=== PATIENT | male | born 1975 | race Two or more races ===

== ENCOUNTER 2017-03-17 12:08 | Inpatient (IN) | payer MEDICAID ==
[~2017-03-17] VITALS: Ht 172.7 cm; Wt 83.3 kg
[2017-03-17 10:30] VITALS: BP 141/91
[~2017-03-17 12:08] MED LIST: CIPRO; MOTRIN; PYRIDIUM
[2017-03-17] MEDS ORDERED: SODIUM CHLORIDE 0.9% 1,000 ML IVB ONE (12:16)
[2017-03-17] MEDS ORDERED: LORazepam 2MG/ML-1ML VIAL IV ONE (12:30)
[2017-03-17] MEDS ORDERED: ONDANSETRON HCL 4 MG/2 ML VIAL IV ONE (12:30)
[2017-03-17 13:03] LABS: Basophils # (auto) 0 uL; CONDITION Y; DEFINITIVE SEE PRINTOUT; Eosinophils # (auto) 0 uL; Hematocrit 39.5 % (41.0-53.0); Hemoglobin 13.8 g/dL (13.5-17.5); Lymphocytes # (auto) 0.2 uL; Lymphocytes % (auto) 5.9 % (10.0-50.0); Mean Corpuscular Hemoglobin 35.8 pg (28.0-32.0); Mean Corpuscular Volume 102.2 fL (80.0-100.0); Mean Platelet Volume 11.1 fL (7.4-10.4); Monocytes # (auto) 0.3 uL; Monocytes % (auto) 7.2 % (0.0-12.0); Neutrophils # (auto) 3.5 uL; Neutrophils % (auto) 86.9 % (37.0-80.0); Platelet Count (auto) 48 10^3/uL (140-450); Red Cell Distribution Width 18.6 % (11.6-16.0); SUSPECT SEE PRINTOUT
[2017-03-17 13:25] LABS: Macrocytosis Slight; Platelet Estimate Decreased
[2017-03-17 13:27] LABS: INR 1.52 (0.9-1.15); Partial Thromboplastin Time 31.2 sec (22.64-33.71)
[2017-03-17 13:38] LABS: Prothrombin Time 16.6 sec (9.37-12.3)
[2017-03-17 13:43] LABS: Albumin 2.9 g/dL (3.4-5.0); Alkaline Phosphatase 273 U/L (45-117); Anion Gap 15 (5-15); BUN/Creatinine Ratio 9.6; Bilirubin, Total 16.1 mg/dL (0.2-1.0); Blood Urea Nitrogen 7 mg/dL (7-18); Calcium 8.6 mg/dL (8.5-10.1); Carbon Dioxide 22 mmol/L (21-32); Chloride 96 mmol/L (98-107); GFR African American 152 mL/min; GFR Non-African American 125 mL/min; Glucose 153 mg/dL (74-106); Magnesium 1.8 mg/dL (1.6-2.6); Sodium 133 mmol/L (136-145); Total Protein 7.4 g/dL (6.4-8.2)
[2017-03-17 13:54] LABS: Aspartate Aminotransferase 280 U/L (15-37)
[2017-03-17] MEDS ORDERED: POTASSIUM CHL 20 Meq TABLET PO ONE ×2 (15:15→22:00)
[2017-03-17] MEDS ORDERED: LORazepam 2MG/ML-1ML VIAL IV PRN (15:15)
[2017-03-17] MEDS ORDERED: PANTOPRAZOLE SODIUM 40 MG/10 ML VIAL IV ONE (15:45)
[2017-03-17] MEDS ORDERED: ONDANSETRON HCL 4 MG/2 ML VIAL IV PRN (15:45)
[2017-03-17] MEDS: SOD CHL 0.9%/ KCL 20MEQ 1,000 ML IV SCH (17:28)
[2017-03-17] MEDS: LACTULOSE 20Gm/30ML SOLN PO SCH ×2 (18:42→23:34)
[2017-03-17] MEDS: THIAMINE INJ 100 MG, MULTIPLE VITAMIN 10 ML, FOLIC ACID 1 MG, MAGNESIUM SULF SDV 50% 8 ... IV SCH ×5 (19:20)
[2017-03-17 20:10] LABS: Urine Blood TRACE /uL (Negative); Urine Color Brown (Yellow); Urine Glucose TRACE mg/dL (Normal); Urine Hyaline Cast FEW /lpf (0 - 2); Urine Ketone Negative (Negative); Urine Mucus FEW (None Seen); Urine Nitrite Negative (Negative); Urine RBC <1 /hpf (0 - 3); Urine Squamous Epithelial Cell FEW /hpf (<5); Urine Urobilinogen >12.0 mg/dL (Negative)
[2017-03-17 20:20] LABS: Urine Bilirubin 4+ (Negative)
[2017-03-17] MEDS: LORazepam 2MG/ML-1ML VIAL IV PRN (20:59)
[2017-03-17 22:30] VITALS: BP 141/91
[2017-03-18] MEDS: KETOROLAC TROMETH 30 MG/ML 1ML VIAL IV PRN ×2 (00:49→06:37)
[2017-03-18] MEDS ORDERED: HYDR-4663 PO (03:28)
[2017-03-18] MEDS: SOD CHL 0.9%/ KCL 20MEQ 1,000 ML IV SCH ×2 (04:33→17:45)
[2017-03-18 05:30] VITALS: BP 107/78
[2017-03-18 06:08] LABS: Basophils # (auto) 0 uL; Basophils % (auto) 0.3 % (0.0-2.0); CONDITION Y; DEFINITIVE SEE PRINTOUT; Eosinophils # (auto) 0 uL; Eosinophils % (auto) 0.3 % (0.0-7.0); Hematocrit 38.2 % (41.0-53.0); Hemoglobin 13.2 g/dL (13.5-17.5); Lymphocytes # (auto) 0.6 uL; Lymphocytes % (auto) 11.8 % (10.0-50.0); Mean Corpuscular Hemoglobin 35.6 pg (28.0-32.0); Mean Corpuscular Hgb Conc. 34.5 g/dL (32.0-36.0); Mean Corpuscular Volume 103.1 fL (80.0-100.0); Mean Platelet Volume 10.9 fL (7.4-10.4); Monocytes # (auto) 0.6 uL; Monocytes % (auto) 10.8 % (0.0-12.0); Neutrophils % (auto) 76.8 % (37.0-80.0); Platelet Count (auto) 56 10^3/uL (140-450); Red Cell Distribution Width 18.5 % (11.6-16.0); White Blood Cell 5.2 10^3/uL (4.4-10.8)
[2017-03-18] MEDS: LACTULOSE 20Gm/30ML SOLN PO SCH ×3 (06:15→17:45)
[2017-03-18 06:49] LABS: Albumin 2.8 g/dL (3.4-5.0); BUN/Creatinine Ratio 5.6; Bilirubin, Total 17.1 mg/dL (0.2-1.0); Calcium 7.9 mg/dL (8.5-10.1); Potassium 3.2 mmol/L (3.5-5.1); Total Protein 7.1 g/dL (6.4-8.2)
[2017-03-18 09:00] VITALS: BP 116/58
[2017-03-18] MEDS: PANTOPRAZOLE SODIUM 40 MG/10 ML VIAL IV SCH (09:29)
[2017-03-18] MEDS ORDERED: chlordiazePOXIDE HCL 25 MG CAP PO PRN (12:30)
[2017-03-18] MEDS ORDERED: POTASSIUM CHL 20 Meq TABLET PO ONE (12:30)
[2017-03-18 13:00] VITALS: BP 113/59
[2017-03-18] MEDS: THIAMINE INJ 100 MG, MULTIPLE VITAMIN 10 ML, FOLIC ACID 1 MG, MAGNESIUM SULF SDV 50% 8 ... IV SCH ×5 (13:06)
[2017-03-18 17:00] VITALS: BP 122/61
[2017-03-18 20:00] VITALS: BP 126/76
[2017-03-18 22:00] VITALS: BP 126/76
[2017-03-19] MEDS: LACTULOSE 20Gm/30ML SOLN PO SCH ×5 (00:42→18:00)
[2017-03-19] MEDS: LORazepam 2MG/ML-1ML VIAL IV PRN (03:15)
[2017-03-19 05:30] VITALS: BP 128/92
[2017-03-19 08:20] LABS: Albumin 2.7 g/dL (3.4-5.0); BUN/Creatinine Ratio 11.3; Calcium 7.8 mg/dL (8.5-10.1)
[2017-03-19 08:31] LABS: Bilirubin, Total 20.6 mg/dL (0.2-1.0)
[2017-03-19 09:02] LABS: Total Protein 6.8 g/dL (6.4-8.2)
[2017-03-19] MEDS: SOD CHL 0.9%/ KCL 20MEQ 1,000 ML IV SCH (09:25)
[2017-03-19] MEDS: PANTOPRAZOLE SODIUM 40 MG/10 ML VIAL IV SCH (10:00)
[2017-03-19] MEDS: THIAMINE INJ 100 MG, MULTIPLE VITAMIN 10 ML, FOLIC ACID 1 MG, MAGNESIUM SULF SDV 50% 8 ... IV SCH ×5 (12:00)
== END 2017-03-19 15:32 | disposition home or self-care (01) | DRG 775 ==
LOC: EDBD 12:08 → ER 12:12 → TELE 12:13 → TELE-WESTW 22:15 → WEST WING 03-18 00:04
PROVIDERS: ADMIT Internal Medicine; ATTEND Internal Medicine
DX: F10.239 Alcohol dependence with withdrawal, unspecified (principal); D69.59 Other secondary thrombocytopenia; E44.0 Moderate protein-calorie malnutrition; K70.30 Alcoholic cirrhosis of liver without ascites; K74.60 Unspecified cirrhosis of liver; Y90.9 Presence of alcohol in blood, level not specified; D69.6 Thrombocytopenia, unspecified; R56.9 Unspecified convulsions; E87.6 Hypokalemia; I10 Essential (primary) hypertension; F32.9 Major depressive disorder, single episode, unspecified; R73.9 Hyperglycemia, unspecified; F17.210 Nicotine dependence, cigarettes, uncomplicated; K72.90 Hepatic failure, unspecified without coma; K76.0 Fatty (change of) liver, not elsewhere classified; Z71.89 Other specified counseling; Z68.27 Body mass index [BMI] 27.0-27.9, adult
CPT/HCPCS: 36415; 70450; 76705; 80053; 80074; 80307; 80320; 81001; 82140; 83735; 85025; 85610; 85730; 94761; 96361; 96374; 96375; 96376; C9113; J1885

== ENCOUNTER 2017-03-23 19:05 | Emergency (ER) | payer MEDICAID ==
[~2017-03-23] VITALS: Ht 175.3 cm; Wt 86.2 kg
[~2017-03-23 19:05] MED LIST changes: -CIPRO; +HYDR-4663 PO; -MOTRIN; -PYRIDIUM
[2017-03-23] MEDS ORDERED: MORPHINE SULFATE 4 MG/ML SYRG IV ONE (21:30)
[2017-03-23] MEDS ORDERED: ONDANSETRON HCL 4 MG/2 ML VIAL IV ONE (21:30)
[2017-03-23] MEDS ORDERED: SODIUM CHLORIDE 0.9% 1,000 ML IV ONE (21:30)
[2017-03-23 21:55] LABS: CONDITION Y; DEFINITIVE SEE PRINTOUT; Hemoglobin 11.8 g/dL (13.5-17.5); Mean Corpuscular Hgb Conc. 34.8 g/dL (32.0-36.0); Mean Corpuscular Volume 106.6 fL (80.0-100.0); Mean Platelet Volume 9.7 fL (7.4-10.4); Platelet Count (auto) 120 10^3/uL (140-450); Red Cell Distribution Width 16.8 % (11.6-16.0); SUSPECT SEE PRINTOUT; White Blood Cell 4.4 10^3/uL (4.4-10.8)
[2017-03-23 22:10] LABS: Metamyelocytes % 0; Myelocytes % 0; Promyelocytes % 0; Reactive Lymphocytes 0
[2017-03-23 22:30] LABS: Platelet Estimate Decreased; Stomatocytes Few
[2017-03-23 22:31] LABS: Giant Platelets Few; Macrocytosis Moderate
[2017-03-23 22:35] LABS: Urine Bilirubin 2+ (Negative); Urine Blood Negative /uL (Negative); Urine Glucose Normal (Normal); Urine Ketone Negative (Negative); Urine Mucus FEW (None Seen); Urine Nitrite Negative (Negative); Urine RBC <1 /hpf (0 - 3); Urine Urobilinogen >12.0 mg/dL (Negative)
[2017-03-23 22:36] LABS: Albumin 2.1 g/dL (3.4-5.0); Bilirubin, Total 16.2 mg/dL (0.2-1.0); Potassium 3.3 mmol/L (3.5-5.1); Total Protein 5.9 g/dL (6.4-8.2)
[2017-03-23 23:11] LABS: Urine Color Orange (Yellow)
[2017-03-23 23:32] VITALS: BP 110/69
[2017-03-24] MEDS ORDERED: KETOROLAC TROMETH 30 MG/ML 1ML VIAL IV ONE
== END 2017-03-24 02:26 | disposition home or self-care (01) ==
LOC: EDBD 19:05 → ER 19:09
DX: K70.30 Alcoholic cirrhosis of liver without ascites (principal); F17.210 Nicotine dependence, cigarettes, uncomplicated; I10 Essential (primary) hypertension
CPT/HCPCS: 36415; 74176; 80053; 81001; 82150; 83690; 85007; 85027; 96361; 96374; 96375; 99285; J1885; J2270; J2405; J7030

== ENCOUNTER 2018-01-13 14:07 | Emergency (ER) | payer MEDICAID ==
[~2018-01-13] VITALS: Ht 170.2 cm; Wt 108.9 kg
[~2018-01-13 14:07] MED LIST changes: -HYDR-4663 PO; +HYDR-4683 PO
[2018-01-13 15:01] LABS: Basophils # (auto) 0 uL; Basophils % (auto) 0.3 % (0.0-2.0); Eosinophils # (auto) 0.1 uL; Eosinophils % (auto) 2.3 % (0.0-7.0); Hematocrit 40.7 % (41.0-53.0); Hemoglobin 13.8 g/dL (13.5-17.5); Lymphocytes # (auto) 1.3 uL; Mean Corpuscular Hemoglobin 32.6 pg (28.0-32.0); Mean Corpuscular Volume 95.9 fL (80.0-100.0); Monocytes # (auto) 0.4 uL; Monocytes % (auto) 11.4 % (0.0-12.0); Neutrophils # (auto) 1.8 uL; Nucleated Red Blood Cells % 0.1 %; Platelet Count (auto) 69 10^3/uL (140-450); Red Blood Cells 4.24 10^6/uL (4.5-5.90); Red Cell Distribution Width 14.4 % (11.8-14.3); White Blood Cell 3.7 10^3/uL (4.4-10.8)
[2018-01-13 15:21] LABS: Albumin 3.2 g/dL (3.4-5.0); Anion Gap 6 (5-15); BUN/Creatinine Ratio 12.5; Blood Urea Nitrogen 9 mg/dL (7-18); Calcium 8.5 mg/dL (8.5-10.1); Carbon Dioxide 27 mmol/L (21-32); Chloride 109 mmol/L (98-107); GFR African American 153 mL/min; GFR Non-African American 127 mL/min; Glucose 147 mg/dL (74-106); Potassium 4.2 mmol/L (3.5-5.1); Sodium 142 mmol/L (136-145)
[2018-01-13 15:26] LABS: Alanine Aminotransferase 31 U/L (16-61); Alkaline Phosphatase 159 U/L (45-117); Aspartate Aminotransferase 35 U/L (15-37); Bilirubin, Total 0.9 mg/dL (0.2-1.0); Total Protein 6.7 g/dL (6.4-8.2)
[2018-01-13 17:05] VITALS: BP 109/67
== END 2018-01-13 17:08 | disposition home or self-care (01) ==
LOC: ER 14:10
DX: B34.9 Viral infection, unspecified (principal); K70.30 Alcoholic cirrhosis of liver without ascites; I10 Essential (primary) hypertension; Z59.0 Homelessness; Z87.891 Personal history of nicotine dependence
CPT/HCPCS: 36415; 80053; 82140; 84484; 85025

== ENCOUNTER 2018-06-16 07:32 | Emergency (ER) | payer MEDICAID ==
[~2018-06-16] VITALS: Ht 170.2 cm; Wt 117.0 kg
[2018-06-16 07:53] VITALS: BP 126/72
== END 2018-06-16 09:14 | disposition left against medical advice (07) ==
LOC: ER 07:32
DX: M79.672 Pain in left foot (principal); I10 Essential (primary) hypertension; Z87.891 Personal history of nicotine dependence; Z79.899 Other long term (current) drug therapy; Z59.0 Homelessness; Z53.29 Procedure and treatment not carried out because of patient's decision for other reasons
CPT/HCPCS: 73630